=== PATIENT | female | born 1955 | race Caucasian/White ===

== ENCOUNTER 2020-01-18 14:59 | Inpatient (IN) | payer OTHER ==
[~2020-01-18] VITALS: Ht 162.6 cm; Wt 114.8 kg
[2020-01-18 15:08] VITALS: Ht 162.6 cm; Wt 114.8 kg
[2020-01-18 15:40] LABS: BASOPHIL % 0.1 % (0-2); PLATELET COUNT 362 x10^3mcL (130-400); RED CELL DISTRIBUTION WIDTH 14.2 % (11.5-14.5)
[2020-01-18 15:50] LABS: CALCIUM 8.6 mg/dL (8.5-10.1); CARBON DIOXIDE 28.5 mmol/L (21-32); CHLORIDE SERUM 105 mmol/L (98-107); CREATININE SERUM 0.9 mg/dL (0.6-1.0); GFR1 > 60 mL/min; GLUCOSE SERUM 99 mg/dL (74-106); POTASSIUM SERUM 3.5 mmol/L (3.5-5.1); SODIUM SERUM 143 mmol/L (136-145)
[2020-01-18 15:54] LABS: ALKALINE PHOSPHATASE 150 U/L (46-116); ALT/SGPT 19 U/L (14-59); AST/SGOT 14 U/L (15-37); BILIRUBIN TOTAL 0.3 mg/dL (0.20-1.00)
[2020-01-18 15:55] LABS: ALBUMIN 3.3 g/dL (3.4-5.0)
[2020-01-18 17:36] LABS: MAGNESIUM 1.9 mg/dL (1.8-2.4)
[2020-01-18 17:44] LABS: T3 TOTAL 1.53 ng/mL
[2020-01-18 18:01] LABS: FREE T4 1.24 ng/dL (0.76-1.46); FREE THYROXINE INDEX 3.5 ug/dL (1.4-4.5); T4(THYROXINE) 10.5 ug/dL (4.7-13.3)
[2020-01-18 20:59] VITALS: BP 120/68
[2020-01-19 04:03] VITALS: BP 144/72
[2020-01-19 06:38] LABS: CALCIUM 7.8 mg/dL (8.5-10.1); CARBON DIOXIDE 27.4 mmol/L (21-32); CHLORIDE SERUM 104 mmol/L (98-107); CREATININE SERUM 0.8 mg/dL (0.6-1.0); GFR1 > 60 mL/min; GLUCOSE SERUM 91 mg/dL (74-106); POTASSIUM SERUM 3.8 mmol/L (3.5-5.1); SODIUM SERUM 139 mmol/L (136-145)
[2020-01-19 07:02] LABS: BASOPHIL % 1.2 % (0-2); PLATELET COUNT 327 x10^3mcL (130-400); RED CELL DISTRIBUTION WIDTH 14.1 % (11.5-14.5)
[2020-01-19 07:52] VITALS: BP 117/65
[2020-01-19 11:23] VITALS: BP 119/64
[2020-01-19 16:31] VITALS: BP 127/68
[2020-01-19 20:47] VITALS: BP 126/54
[2020-01-20 05:14] VITALS: BP 150/78
[2020-01-20 06:41] LABS: BASOPHIL % 0.6 % (0-2); PLATELET COUNT 329 x10^3mcL (130-400); RED CELL DISTRIBUTION WIDTH 14.4 % (11.5-14.5)
[2020-01-20 07:03] LABS: CALCIUM 7.8 mg/dL (8.5-10.1); CARBON DIOXIDE 27.8 mmol/L (21-32); CHLORIDE SERUM 103 mmol/L (98-107); CREATININE SERUM 0.7 mg/dL (0.6-1.0); GFR1 > 60 mL/min; GLUCOSE SERUM 91 mg/dL (74-106); POTASSIUM SERUM 3.7 mmol/L (3.5-5.1); SODIUM SERUM 139 mmol/L (136-145)
[2020-01-20 08:32] VITALS: BP 135/78
[2020-01-20 11:46] VITALS: BP 147/68
[2020-01-20 15:54] VITALS: BP 148/79
[2020-01-20 19:54] VITALS: BP 132/73
[2020-01-21 05:24] VITALS: BP 146/72
[2020-01-21 06:36] LABS: BASOPHIL % 1.2 % (0-2); PLATELET COUNT 322 x10^3mcL (130-400); RED CELL DISTRIBUTION WIDTH 14.4 % (11.5-14.5)
[2020-01-21 07:04] LABS: CALCIUM 7.9 mg/dL (8.5-10.1); CARBON DIOXIDE 27.1 mmol/L (21-32); CHLORIDE SERUM 103 mmol/L (98-107); CREATININE SERUM 0.6 mg/dL (0.6-1.0); GFR1 > 60 mL/min; GLUCOSE SERUM 91 mg/dL (74-106); POTASSIUM SERUM 3.8 mmol/L (3.5-5.1); SODIUM SERUM 140 mmol/L (136-145)
[2020-01-21 07:45] VITALS: BP 151/84
[2020-01-21] MEDS ORDERED: NAPROSYN500 MG PO (08:08)
[2020-01-21] MEDS ORDERED: CLEOCIN HCL150 MG PO (08:11)
[2020-01-21 08:28] VITALS: BP 146/72
== END 2020-01-21 09:57 | disposition home or self-care (01) | DRG 383 ==
LOC: ED 14:59 → MU 16:52
PROVIDERS: Emergency Medicine; ADMIT Internal Medicine
DX: L03.116 Cellulitis of left lower limb (principal); E66.01 Morbid (severe) obesity due to excess calories; L03.115 Cellulitis of right lower limb; M19.90 Unspecified osteoarthritis, unspecified site; Z23 Encounter for immunization; Z79.899 Other long term (current) drug therapy
CPT/HCPCS: 83880; 84439; 90732; C9113; G0378; J0696; J1885; J2270; J3370; J7030; J7060; Q0092